=== PATIENT | male | born 1975 | race Caucasian/White ===

== ENCOUNTER 2020-11-17 17:59 | Emergency (ER) | payer OTHER, SELFPAY ==
--- NOTE | ~2020-11-17 | XR_ITS ---
EXAMINATION: XR ribs LT 2V DATE: 11/17/2020 18:24 INDICATION: Left rib injury. TECHNIQUE: 3 views of the left ribs were obtained. COMPARISON: None. FINDINGS: There is mild scarring at the lung apices. No left-sided pleural effusion or pneumothorax. The heart size is normal. IMPRESSION: 1. No rib fracture. Reviewed, dictated and finalized at location A. IMPRESSION: 1. No rib fracture.
--- NOTE | 2020-11-17 18:08 | ED.GENADULT ---
HPI - General Adult General Chief complaint: Unspecified Stated complaint: Rib Pain Time Seen by Provider: 11/17/20 18:23 Source: patient and RN notes reviewed Mode of arrival: ambulatory Limitations: no limitations History of Present Illness HPI narrative: 45-year-old male presents with concern for left hand pain. Reports yesterday morning he was helping a calf when the cow kicked and at the same time a metal pole fell, he is not sure if he was hit by the metal pole or by the cow kicking. He felt pain in the left anterior lateral chest area. Reports pain at level of 5/10 at baseline, 7/10 with deep breathing. Denies any shortness of breath, bleeding, bruising, redness, deformity MD complaint: Rib pain Related Data Home Medications Medication Instructions Recorded Confirmed No Home Medications 09/10/19 09/10/19 Allergies Allergy/AdvReac Type Severity Reaction Status Date / Time No Known Allergies Allergy Unverified 10/17/14 17:12 Review of Systems Review of Systems: Narrative: CONSTITUTIONAL: Denies malaise, chills, sweats, or fever. CARDIOVASCULAR: Denies chest pain, palpitations, or edema. RESPIRATORY: Denies cough or dyspnea. GASTROINTESTINAL: Denies abdominal pain, nausea, vomiting, diarrhea GENITOURINARY: Denies hematuria. SKIN: Denies bruising, redness MUSCULOSKELETAL: Reports left rib pain, worse with moving the left arm and deep breathing NEUROLOGIC: Denies numbness, weakness All systems reviewed & are unremarkable except as noted in HPI and below PMFSH Comments At time of signature, agree with nursing past medical, surgical, social and family history. There is no relevant family history pertinent to the presenting complaint Exam Narrative: Exam Narrative: GENERAL: Well-appearing, well-nourished, and in no acute distress. HEAD: Normocephalic, atraumatic. EYES: PERRLA, conjunctivae clear ENT: Mucous membranes moist. NECK: Supple. CHEST: No respiratory distress. Clear to auscultation. No bony deformities, no asymmetry. Speaks in full sentences. HEART: Regular rate and rhythm. No murmur heard. Normal peripheral pulses. SKIN: Warm, dry, no rash. NEURO: Alert and oriented x3. PSYCH: Normal mood and affect Course Course Emergency Course: Patient is aware of diagnosis, understands and agrees to treatment plan. Anticipatory guidance given. Patient agrees to follow-up as directed and is aware of reasons to seek care at the emergency department. Portions of this record may have been created with voice recognition software Vital Signs Vital signs: Vital Signs Temperature 98.4 F 11/17/20 18:15 Pulse Rate 97 11/17/20 18:15 Respiratory Rate 16 11/17/20 18:15 Blood Pressure 164/98 H 11/17/20 18:15 Pulse Oximetry 99 11/17/20 18:15 Temperature 98.4 F 11/17/20 18:15 Pulse Rate 97 11/17/20 18:15 Respiratory Rate 16 11/17/20 18:15 Blood Pressure 164/98 H 11/17/20 18:15 Pulse Oximetry 99 11/17/20 18:15 Reviewed. Pt has been instructed to follow up with his primary care provider within the next week regarding his elevated blood pressure today. Medical Decision Making MDM Narrative Medical decision making narrative: Exam findings and imaging show no acute concerns or changes; patient is non-toxic appearing and is in no distress. Patient is appropriate for outpatient treatment and follow-up. Vital Signs Vital Signs: Vital Signs Temperature 98.4 F 11/17/20 18:15 Pulse Rate 97 11/17/20 18:15 Respiratory Rate 16 11/17/20 18:15 Blood Pressure 164/98 H 11/17/20 18:15 Pulse Oximetry 99 11/17/20 18:15 Temperature 98.4 F 11/17/20 18:15 Pulse Rate 97 11/17/20 18:15 Respiratory Rate 16 11/17/20 18:15 Blood Pressure 164/98 H 11/17/20 18:15 Pulse Oximetry 99 11/17/20 18:15 Imaging Data My impression: Images reviewed, interpreted by radiologist, agree, see report. Radiologist's impression: EXAMINATION: XR ribs LT 2V DATE: 11/17/2020 18:24
[2020-11-17 18:15] VITALS: BP 164/98; PULSE 97; RESP 16; TEMP 36.9; O2SAT 99
== END 2020-11-17 18:48 | disposition home or self-care (01) ==
PROVIDERS: Emergency Provider Nurse Practitioner
DX: S20.212A Contusion of left front wall of thorax, initial encounter (principal); X58.XXXA Exposure to other specified factors, initial encounter
CPT/HCPCS: 71100; 99213; G0463

== ENCOUNTER 2021-12-20 20:09 | Emergency (ER) | payer OTHER, SELFPAY ==
--- NOTE | ~2021-12-20 | XR_ITS ---
EXAM: XR forearm RT 2V, XR wrist RT min 3V HISTORY: CRUSH INJURY TODAY, PRIOR SURGERY TO ELBOW AND WRIST COMPARISON: None available FINDINGS: Normal mineralization. Small avulsion or chip fracture off the dorsal cortex of the dist al radius. No other fracture or dislocation. No lytic or blastic lesion. Joint spaces maintained. No erosion or periosteal change. Soft tissue swelling over the right wrist and distal forearm. Postsurgi margaret change at the wrist and elbow. IMPRESSION: Small avulsion fracture off the dorsal cortex of the distal radius. Reviewed, dictated and finalized at location K. IMPRESSION: Small avulsion fracture off the dorsal cortex of the distal radius.
[2021-12-20 20:11] VITALS: BP 105/64; PULSE 78; RESP 16; TEMP 36.4; O2SAT 100
[2021-12-20] MEDS: HYDROcodone/acetaminophen (*CRX) 5-325 MG TABLET 1 TAB PO (22:54)
[2021-12-20] MEDS: TETANUS,DIPHTHERIA,AC PERTUSSIS ADULT (0.5 ML) BOOSTRIX IM (22:54)
--- NOTE | 2021-12-20 23:40 | ED.UPPEXIN ---
HPI - Extremity Injury (Upper) General Chief Complaint: Extremity Injury, Upper Stated Complaint: right arm injury Time Seen by Provider: 12/20/21 22:22 History of Present Illness HPI narrative: Patient is a 46-year-old male who presents ER with pain and swelling to his right forearm/wrist. Patient was time to bundy a calf when it struck his arm against a wall. His arm was actually smashed between the calf and the wall but was never entrapped. He has some skin abrasions over the area of injury. Tetanus is not up-to-date. No numbness or tingling. Continues to be able to have range of motion at the wrist and elbow. Denies suffering any additional injuries. Patient is on Effient due to having an [place] earlier this year. Related Data Allergies Allergy/AdvReac Type Severity Reaction Status Date / Time No Known Allergies Allergy Unverified 10/17/14 17:12 [facility], [facility] Past Medical History Medical History (Updated 12/20/21 @ 23:51 by Seymour Romero MD) Coronary artery disease Hypertension Myocardial infarction Surgical History Surgical History (Updated 12/20/21 @ 23:51 by Seymour Romero MD) History of surgery on right wrist Exam Narrative: GENERAL: Well-appearing, well-nourished, and in no acute distress. HEAD: Normocephalic, atraumatic.. HEART: Regular rate and rhythm. Normal peripheral pulses. EXTREMITIES: Exam of the right upper extremity reveals swelling over the dorsal aspect of the distal forearm going into the wrist and proximal hand. Flexion extension intact in the wrist and elbow. No wrist tenderness or elbow tenderness. There is tenderness over the dorsal forearm where there is swelling. There is additional abrasions linearly over the area of swelling. Normal radial pulse bilaterally. Brisk capillary refill bilateral hands. Sensation intact. SKIN: Warm, dry, no rash. Abrasions of the right dorsal hand and wrist and forearm. NEURO: No focal deficits. Alert and oriented x3. PSYCH: Normal mood and affect. Course Course Emergency Course: Tetanus updated. [place] given for pain. Patient has been placed in a dorsal volar splint for comfort by the echo technician. Discussed signs and symptoms of compartment syndrome with the patient and educated him on need to return should any develop. He is verbalized understanding of this. Will refer to orthopedic surgery. Vital Signs Vital signs: Vital Signs Temperature 97.6 F 05/01/22 20:11 Pulse Rate 78 12/20/21 20:11 Respiratory Rate 16 12/20/21 20:11 Blood Pressure 105/64 12/20/21 20:11 Pulse Oximetry 100 12/20/21 20:11 Temperature 97.6 F 12/20/21 20:11 Pulse Rate 78 12/20/21 20:11 Respiratory Rate 16 12/20/21 20:11 Blood Pressure 105/64 12/20/21 20:11 Pulse Oximetry 100 12/20/21 20:11 MDM - Extremity Injury (Upper) Imaging Data Radiologist's impression: ITS Impressions Forearm X-Ray 12/20/21 20:38 IMPRESSION: Small avulsion fracture off the dorsal cortex of the distal radius. Wrist X-Ray 12/20/21 20:38 IMPRESSION: Small avulsion fracture off the dorsal cortex of the distal radius. Discharge Plan Discharge Clinical Impression: Distal radius fracture, right Patient Disposition: Home, Self-Care Condition: Stable Instructions: Arm Fracture in Adults (ED) Additional Instructions: Elevate your arm or leg after an injury. Raise your arm or leg at the level of your heart as long as directed. This will help decrease swelling and pain. Do not raise your arm or leg higher than your heart. Prop it on pillows or blankets to keep it elevated. Return the ER if you are having aching and burning in your right hand or arm, you develop any increased tightness, you have any numbness or tingling, or develop new weakness in your arm/hand. You should follow-up with an orthopedic surgeon for additional evaluation of your injury. Prescriptions: New hydrocodone-acetaminophen 5-325 mg tablet 1 ta
[2021-12-21 00:43] VITALS: BP 133/92; PULSE 72; RESP 18; O2SAT 97
--- NOTE | 2022-01-02 06:01 | PC.NURSE ---
Addendum entered by Alex Stanley RN 01/02/22 06:17: splint name should read dorsal volar splint Original Note: LATE ENTRY This note is being entered to document information to the patient's record. The following information was omitted on [12/21/21], by [Alex Stanley RN] VORB given by EDP Dr. Collado for posterior volar splint to pt right forearm. Splint was applied at 0030 on 12/21/21 with CSM intact.
== END 2021-12-21 00:44 | disposition home or self-care (01) ==
PROVIDERS: Emergency Provider Emergency Medicine
DX: S52.501A Unspecified fracture of the lower end of right radius, initial encounter for closed fracture (principal); I25.10 Atherosclerotic heart disease of native coronary artery without angina pectoris; I10 Essential (primary) hypertension; I25.2 Old myocardial infarction; Z23 Encounter for immunization; W55.89XA Other contact with other mammals, initial encounter
CPT/HCPCS: 29125; 73090; 73110; 90471; 90715; 99284; A9270

== ENCOUNTER 2022-01-11 07:33 | Outpatient (CLI) | payer OTHER, SELFPAY ==
--- NOTE | ~2022-01-11 | XR_ITS ---
EXAMINATION: XR wrist RT min 3V DATE: 01/11/2022 08:01 INDICATION: Right wrist pain after crushing injury. TECHNIQUE: 3 views of right wrist were obtained. COMPARISON: Right wrist radiographs 12/20/2021 FINDINGS: There is an old healed fracture deformity of distal ulnar diaphysis. There is ankylosis of distal radioulnar joint with fixation with a lag screw. No acute fracture. There is mild osteoarthrit is of first carpometacarpal joint. IMPRESSION: 1. 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 2. Mild osteoarthritis of first carpometacarpal joint. Reviewed, dictated and finalized at location A.
== END 2022-01-11 07:34 | disposition home or self-care (01) ==
LOC: CHSIMG 07:40
PROVIDERS: Visit Provider Orthopaedic Surgery
DX: M25.531 Pain in right wrist (principal)
CPT/HCPCS: 73110